=== PATIENT | female | born 1980 | race Caucasian/White ===

== ENCOUNTER → 2022-01-11 | Emergency (ER) | payer OTHER ==
[~2022-01-11] MED LIST: IBUPROFEN800 MG PO; VALACYCLOVIR1000 MG PO
== END | disposition home or self-care (01) ==
LOC: ER1 10:28
DX: R51.9 Headache, unspecified (principal); M25.551 Pain in right hip; M25.511 Pain in right shoulder
CPT/HCPCS: 99283